=== PATIENT | male | born 1960 | race African-American/Black ===

== ENCOUNTER 2019-03-21 10:46 | Outpatient (CLI) | payer MEDICARE ==
--- NOTE | 2019-03-21 11:40 | RAD ---
XR Chest Pa Lat STANDARD HISTORY: Dyspnea COMPARISON: 12/10/2014 study FINDINGS: Heart size is slightly enlarged. Mediastinal structures appear unremarkable. The lungs are clear of any infiltrates. There are no signs of failure. IMPRESSION: Mild cardiomegaly.
== END 2019-03-21 10:47 | disposition home or self-care (01) ==
LOC: BICRAD 10:46
PROVIDERS: ATTEND Internal Medicine Infectious Disease
DX: R06.00 Dyspnea, unspecified (principal); I51.7 Cardiomegaly
CPT/HCPCS: 71046

== ENCOUNTER 2019-03-25 13:34 | Outpatient (CLI) | payer MEDICARE | END 2019-03-25 13:35 | disposition home or self-care (01) | LOC: ULT 13:34 | PROVIDERS: ATTEND Internal Medicine Infectious Disease | DX: R06.00 Dyspnea, unspecified (principal); I08.1 Rheumatic disorders of both mitral and tricuspid valves | CPT/HCPCS: 93306 ==